=== PATIENT | male | born 1950 | race Caucasian/White ===

== ENCOUNTER → 2016-10-17 | Outpatient (CLI) | payer OTHER, MEDICARE ==
[~2016-10-17] MED LIST: DIAZ-90 PO; ENAL20TA PO; HYDR-902 PO; MULT1TAB59 PO; ONDA4TAB14 PO; SMV40T PO
--- NOTE | 2016-10-17 15:38 | RADRPT ---
PROCEDURE: XR pelvis/right hip. CLINICAL INDICATION: Hip pain TECHNIQUE: AP pelvis/AP and lateral right hip views performed. COMPARISON: No prior studies are available for comparison. FINDINGS: There is a right total hip replacement. There is no evidence of loosening of the prosthesis. No hard mendoza failure is identified. There is moderate left hip osteoarthrosis. This is associated with joint space narrowing, subchondra l sclerosis and osteophytosis. There is normal osseous mineralization. No fractures or osseous les ions are identified. The soft tissues are unremarkable. IMPRESSION: Right total hip replacement. Moderate left hip osteoarthrosis. RPTAT: [facility] .Robson Gentile MD, MD Date Time Electronically viewed and signed by .Robson Gentile MD, on 10/17/2016 15:38 .B/
== END | disposition home or self-care (01) ==
LOC: HKI 16:36
PROVIDERS: ATTEND Orthopaedic Surgery
DX: Z47.1 Aftercare following joint replacement surgery (principal); M25.551 Pain in right hip; M25.561 Pain in right knee; Z96.651 Presence of right artificial knee joint; Z96.641 Presence of right artificial hip joint
CPT/HCPCS: 73502; G0463

== ENCOUNTER → 2016-10-22 | Outpatient (CLI) | payer OTHER, MEDICARE ==
--- NOTE | 2016-10-22 16:45 | RADRPT ---
PROCEDURE: Three-phase bone scan study CLINICAL INDICATION: 66 -year-old patient with right knee replacement, complaining of right knee p ain. TECHNIQUE: Following the intravenous injection of 25.5 mCi of Tc-99m MDP, a three-phase bone scan study of the knees to bilaterally was obtained. COMPARISON: No prior bone scan studies. X-ray of the pelvis and right hip dated October 17, 2016, x-r ay of the right knee dated March 27, 2016. FINDINGS: Blood flow phase of the study demonstrates marked asymmetrically increased activity surrounding the right knee prosthesis as compared to the left knee. Blood pooling images reveal marked asymmetrically increased blood pooling activity surrounding the r ight knee as compared to the left. Delayed images of both knees demonstrate evidence of a right knee replacement with increased activit y noted surrounding the prosthesis. Small area of mildly increased activity seen in the left knee, which is likely related to degenerati ve process. intensely IMPRESSION: 1. Evidence of the right knee replacement with markedly increased blood flow and blood pooling acti vity surrounding the right knee joint and areas of moderately increased activity surrounding the rig ht knee prosthesis on the delayed images; infectious process should be considered in the differentia l diagnosis. 2. Likely mild degenerative changes of the left knee. 3. No other abnormal areas of increased uptake in the obtained limited views of both knees. RPTAT: HH .Francisca Leon MD, Date Time Electronically viewed and signed by .Francisca Leon MD, on 10/22/2016 16:45 .L/
== END | disposition home or self-care (01) ==
LOC: NUC 09:47
PROVIDERS: ATTEND Orthopaedic Surgery
DX: M25.551 Pain in right hip (principal); Z96.641 Presence of right artificial hip joint
CPT/HCPCS: 78315